=== PATIENT | male | born 1990 | race Hispanic/Latino ===

== ENCOUNTER → 2020-05-20 | Outpatient (CLI) | payer OTHER ==
--- NOTE | 2020-05-20 10:29 | PFTRPT ---
Height: 69.00 Inches Weight: 171.00 Lbs BSA: 1.93 Diagnosis: COUGH DATE: 05/20/2020 ORDERING PHYSICIAN: Anuj Romano Pre and post bronchodilator studies have excellent technical quality. Forced vital capacity is normal. FEV1 is in proportion. Obstructive index is therefore normal. Expiratory limit of the flow-volume loop is normal. No significant bronchodilator response is identified. Total lung capacity is normal. Residual volume is in proportion. Diffusing capacity is normal. No hemoglobin available for correction. Airway resistance and conductance are normal. IMPRESSION: Normal study. MTDD
== END ==
LOC: M CARPUL 09:40
PROVIDERS: ATTEND Physician Assistant
DX: R05 Cough (principal)

== ENCOUNTER 2020-09-22 18:50 | Emergency (ER) | payer OTHER ==
[2020-09-22 21:04] LABS: BASO # 0.1 10^3/uL (0.0-0.2); BASO % 0.3 % (0.0-1.0); EOS # 0.1 10^3/uL (0.0-0.5); EOS % 0.4 % (0.0-3.0); HEMATOCRIT 43.7 % (42.0-52.0); HEMOGLOBIN 14.7 g/dl (13.5-17.5); LYMPH # 2.5 10^3/uL (1.5-5.0); LYMPH % 12.5 % (24.0-44.0); MEAN CORPUSCULAR HEMOGLOBIN 29.7 pg (27.0-33.0); MEAN CORPUSCULAR HGB CONC 33.6 g/dl (32.0-36.5); MEAN CORPUSCULAR VOLUME 88.3 fl (80.0-96.0); MONO # 1.2 10^3/uL (0.0-0.8); MONO % 5.7 % (2.0-8.0); NEUTROPHILS # 16.2 10^3/uL (1.5-8.5); NEUTROPHILS % 80.6 % (36.0-66.0); PLATELET COUNT, AUTOMATED 218 10^3/uL (150-450); RED BLOOD COUNT 4.95 10^6/uL (4.30-6.10); WHITE BLOOD COUNT 20.2 10^3/uL (4.0-10.0)
[2020-09-22 21:31] LABS: ALBUMIN 3.5 GM/DL (3.2-5.2); ALT/SGPT 23 U/L (12-78); BILIRUBIN,DIRECT < 0.1 MG/DL (0.0-0.2); BILIRUBIN,TOTAL 0.2 MG/DL (0.2-1.0); BLOOD UREA NITROGEN 19 MG/DL (7-18); CALCIUM LEVEL 7.9 MG/DL (8.5-10.1); CARBON DIOXIDE LEVEL 25 MEQ/L (21-32); CHLORIDE LEVEL 109 MEQ/L (98-107); CK-MB VALUE MASS < 1.0 NG/ML (<3.6); CPK CREATINE PHOSPHOKINASE 72 U/L (39-308); GLOMERULAR FILTRATION RATE > 60.0 (>60); GLUCOSE, FASTING 80 MG/DL (70-100); MAGNESIUM LEVEL 1.8 MG/DL (1.8-2.4); MB/CK RELATIVE INDEX 1.39 (< OR =4); POTASSIUM SERUM 4.5 MEQ/L (3.5-5.1); SODIUM LEVEL 141 MEQ/L (136-145); TOTAL PROTEIN 6.3 GM/DL (6.4-8.2); TROPONIN I < 0.02 NG/ML (< 0.10)
[2020-09-22 22:22] VITALS: BP 124/72
--- NOTE | 2020-09-23 08:04 | ECGEPIP ---
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
== END 2020-09-22 22:24 | disposition home or self-care (01) ==
LOC: EDBD 18:50 → M ED 18:50
DX: K52.9 Noninfective gastroenteritis and colitis, unspecified (principal)

== ENCOUNTER 2020-10-01 14:03 | Emergency (ER) | payer OTHER ==
[~2020-10-01] VITALS: Ht 175.3 cm; Wt 78.2 kg
[2020-10-01 16:14] LABS: BASO # 0.1 10^3/uL (0.0-0.2); BASO % 0.6 % (0.0-1.0); EOS # 0.1 10^3/uL (0.0-0.5); EOS % 0.7 % (0.0-3.0); HEMATOCRIT 46.5 % (42.0-52.0); LYMPH # 2.4 10^3/uL (1.5-5.0); LYMPH % 29.4 % (24.0-44.0); MEAN CORPUSCULAR HEMOGLOBIN 29.9 pg (27.0-33.0); MEAN CORPUSCULAR HGB CONC 34.4 g/dl (32.0-36.5); MEAN CORPUSCULAR VOLUME 86.9 fl (80.0-96.0); MONO # 0.5 10^3/uL (0.0-0.8); MONO % 6.4 % (2.0-8.0); NEUTROPHILS # 5.2 10^3/uL (1.5-8.5); NEUTROPHILS % 62.7 % (36.0-66.0); PLATELET COUNT, AUTOMATED 225 10^3/uL (150-450); RED BLOOD COUNT 5.35 10^6/uL (4.30-6.10); WHITE BLOOD COUNT 8.2 10^3/uL (4.0-10.0)
--- NOTE | 2020-10-01 16:37 | REP ---
INDICATION: chest discomfort. COMPARISON: Comparison chest CT study July 21, 2020. TECHNIQUE: Two views.. FINDINGS: The lungs are well inflated and free of infiltrate. The pleural angles are sharp. The heart size is normal. Pulmonary vasculature is not increased. No significant bony abnormality is seen. EKG electrodes are seen. IMPRESSION: Negative chest x-ray. <Electronically signed by Rmoero Nichole > 10/01/20 [id number]
[2020-10-01 16:56] LABS: ALBUMIN 4.3 GM/DL (3.2-5.2); ALT/SGPT 30 U/L (12-78); BILIRUBIN,DIRECT 0.1 MG/DL (0.0-0.2); BILIRUBIN,TOTAL 0.4 MG/DL (0.2-1.0); BLOOD UREA NITROGEN 14 MG/DL (7-18); CALCIUM LEVEL 9.4 MG/DL (8.5-10.1); CARBON DIOXIDE LEVEL 28 MEQ/L (21-32); CHLORIDE LEVEL 105 MEQ/L (98-107); CK-MB VALUE MASS < 1.0 NG/ML (<3.6); CPK CREATINE PHOSPHOKINASE 88 U/L (39-308); CREATININE FOR GFR 0.88 MG/DL (0.70-1.30); GLOMERULAR FILTRATION RATE > 60.0 (>60); GLUCOSE, FASTING 86 MG/DL (70-100); LIPASE 60 U/L (73-393); MB/CK RELATIVE INDEX 1.14 (< OR =4); POTASSIUM SERUM 4.1 MEQ/L (3.5-5.1); SODIUM LEVEL 136 MEQ/L (136-145); TOTAL PROTEIN 7.6 GM/DL (6.4-8.2); TROPONIN I < 0.02 NG/ML (< 0.10)
--- NOTE | 2020-10-01 17:37 | REPVR ---
PROCEDURE INFORMATION: Exam: CT Head Without Contrast Exam date and time: 10/01/2020 5:09 PM Age: 30 years old Clinical indication: Dizziness; Additional info: Dizziness, int finger and toes parasthesias TECHNIQUE: Imaging protocol: Computed tomography of the head without contrast. Radiation optimization: All CT scans at this facility use at least one of these dose optimization techniques: automated exposure control; mA and/or kV adjustment per patient size (includes targeted exams where dose is matched to clinical indication); or iterative reconstruction. COMPARISON: No relevant prior studies available. FINDINGS: Brain: Normal. No hemorrhage. Unremarkable white matter. No mass effect. Cerebral ventricles: No ventriculomegaly. Bones/joints: Unremarkable. No acute fracture. Paranasal sinuses: Visualized sinuses are unremarkable. No fluid levels. Mastoid air cells: Visualized mastoid air cells are well aerated. Soft tissues: Unremarkable. IMPRESSION: No acute intracranial abnormality. Electronically signed by: Nayan Bowers On 10/01/2020 17:37:02 PM
[2020-10-01] MEDS ORDERED: NS 1,000 ML IV ONE (17:45)
--- NOTE | 2020-10-01 18:18 | ECGEPIP ---
[facility] - ED Test Date: 2020-10-01 Pat Name: ESTEFANIA SEXTON Department: Room: - Gender: Male Bung Driver: YADIRA : 1990 Requested By: Kirit Smith Order Number: [id number] Reading MD: Giovana Lopez Measurements Intervals [place] Rate: 58 P: 60 RI: 132 QRS: 81 QRSD: 98 T: 66 QT: 396 QTc: 388 Interpretive Statements Sinus bradycardia Electronically Signed on 10-01-2020 18:18:08 EDT by Giovana Lopez
[2020-10-01 18:30] VITALS: BP 117/78
[2020-10-01 18:36] LABS: CK-MB VALUE MASS < 1.0 NG/ML (<3.6); CPK CREATINE PHOSPHOKINASE 81 U/L (39-308); MB/CK RELATIVE INDEX 1.23 (< OR =4); TROPONIN I < 0.02 NG/ML (< 0.10)
== END 2020-10-01 18:53 | disposition home or self-care (01) ==
LOC: M ED 14:03
DX: R07.89 Other chest pain (principal); R51.9 Headache, unspecified; R20.2 Paresthesia of skin; Z87.891 Personal history of nicotine dependence

== ENCOUNTER 2020-10-04 18:01 | Emergency (ER) | payer OTHER ==
[~2020-10-04] VITALS: Ht 177.8 cm; Wt 78.3 kg
[2020-10-04 18:02] VITALS: BP 131/72
[2020-10-04] MEDS ORDERED: CEPH500C PO (18:33)
== END 2020-10-04 18:55 | disposition home or self-care (01) ==
LOC: M ED 18:01
DX: S61.205A Unspecified open wound of left ring finger without damage to nail, initial encounter (principal); W26.8XXA Contact with other sharp object(s), not elsewhere classified, initial encounter; Y92.018 Other place in single-family (private) house as the place of occurrence of the external cause

== ENCOUNTER 2021-08-14 12:53 | Emergency (ER) | payer OTHER ==
[~2021-08-14] VITALS: Ht 175.3 cm; Wt 79.1 kg
[~2021-08-14 12:53] MED LIST: CEPH500C PO
[2021-08-14 12:54] VITALS: BP 140/74
[2021-08-14] MEDS ORDERED: PROPARACAINE 0.5% OPHTH SOL 15ML OS ONE (13:25)
[2021-08-14] MEDS ORDERED: FLUORESCEIN OPHTH 1 MG STRIP OS ONE (13:25)
[2021-08-14] MEDS ORDERED: OCUF0.25 OP ×2 (14:26→14:27)
== END 2021-08-14 14:40 | disposition home or self-care (01) ==
LOC: M ED 12:53
DX: H57.12 Ocular pain, left eye (principal); Z87.891 Personal history of nicotine dependence

== ENCOUNTER 2022-04-09 12:29 | Emergency (ER) | payer OTHER ==
[~2022-04-09] VITALS: Ht 175.3 cm; Wt 83.1 kg
[2022-04-09 12:29] VITALS: BP 124/76
[~2022-04-09 12:29] MED LIST changes: +OCUF0.25 OP
[2022-04-09] MEDS ORDERED: PROPARACAINE 0.5% OPHTH SOL 15ML OS ONE (13:10)
[2022-04-09] MEDS ORDERED: FLUORESCEIN OPHTH 1 MG STRIP OD ONE (13:10)
[2022-04-09] MEDS ORDERED: ERYTHROMYCIN OPHTH OINT OS ONE (13:30)
[2022-04-09] MEDS ORDERED: ERYT5OIN25 OS (13:32)
== END 2022-04-09 13:57 | disposition home or self-care (01) ==
LOC: M ED 12:29
DX: S05.02XA Injury of conjunctiva and corneal abrasion without foreign body, left eye, initial encounter (principal)

== ENCOUNTER 2023-06-02 07:44 | Day surgery (SDC) | payer OTHER ==
[~2023-06-02] VITALS: Ht 175.3 cm; Wt 82.2 kg
[~2023-06-02 07:44] MED LIST changes: +ERYT5OIN25 OS; +TRANEXAMIC ACID 100 MG/ML 10ML VIAL IV ONE; +ceFAZolin SOD 2 GM in IV 1 EA IV ONE
[2023-06-02] MEDS ORDERED: LR 1,000 ML IV SCH (08:55)
[2023-06-02] MEDS ORDERED: LIDOCAINE 2% INJ 100 MG/5 ML SYRINGE As Ordered ONE (10:07)
[2023-06-02] MEDS ORDERED: propofoL 200 MG/20 ML VIAL As Ordered ONE (10:07)
[2023-06-02] MEDS ORDERED: HYDROmorphone HCL 2MG/ML 1ML VIAL As Ordered ONE (10:08)
[2023-06-02] MEDS ORDERED: MIDAZOLAM INJ 2MG/2ML VIAL As Ordered ONE (10:08)
[2023-06-02] MEDS ORDERED: ROPIvacaine 0.5% 30ML VIAL As Ordered ONE (10:10)
[2023-06-02] MEDS ORDERED: TRANEXAMIC ACID 100 MG/ML 10ML VIAL As Ordered ONE (10:31)
[2023-06-02] MEDS ORDERED: fentaNYL 100 MCG/2 ML INJECTION As Ordered ONE ×2 (10:48→10:59)
[2023-06-02] MEDS ORDERED: fentaNYL 100 MCG/2 ML INJECTION IV PRN (11:55)
[2023-06-02] MEDS ORDERED: ONDANSETRON 4MG 2ML VIAL IV PRN (11:55)
[2023-06-02] MEDS: oxyCODONE 5MG TAB PO PRN ×2 (12:23→12:54)
[2023-06-02] MEDS: MORPHINE 2 MG/ML 1ML VIAL IV PRN ×4 (12:24→12:54)
[2023-06-02] MEDS ORDERED: METOCLOPRAMIDE INJ 10MG/2ML VIAL IV ONE (13:45)
[2023-06-02 14:16] VITALS: BP 110/62; TEMP 97; O2SAT 97
== END 2023-06-02 14:25 | disposition home or self-care (01) ==
LOC: M SDC 07:44
PROVIDERS: ATTEND Orthopaedic Surgery
DX: M23.252 Derangement of posterior horn of lateral meniscus due to old tear or injury, left knee (principal); Z87.891 Personal history of nicotine dependence
CPT/HCPCS: 29882; C1713; C9290; J0665; J0690; J1170; J2250; J2405; J2765; J3010